=== PATIENT | male | born 1965 | race Caucasian/White ===

== ENCOUNTER 2022-06-06 16:21 | Inpatient (IN) | payer BC ==
[~2022-06-06] VITALS: Ht 180.3 cm; Wt 85.4 kg
[2022-06-06 16:21] VITALS: BP 121/78
[2022-06-06 16:40] LABS: BASO # 0.1 10*3/uL (0.0-0.1); BASO % 0.6 % (0.0-1.0); EOS # 0.2 10*3/uL (0.0-0.4); HEMATOCRIT 50.7 % (42.0-52.0); LYMPH # 2.3 10*3/uL (1.3-4.4); LYMPH % 28.3 % (27.0-41.0); MEAN CELL VOLUME 96.4 fl (80.0-94.0); MEAN CORPUSCULAR HGB 33.3 pg (27.0-31.0); MEAN CORPUSCULAR HGB CONC 34.5 g/dl (33.0-37.0); MEAN PLATELET VOLUME 9.2 fl (9.6-12.3); MONO # 0.8 10*3/uL (0.1-1.0); MONO % 10.1 % (3.0-9.0); NEUT # 4.7 10*3/uL (2.3-7.9); NEUT % 57.9 % (47.0-73.0); PLATELET COUNT AUTOMATED 246 10*3/uL (130-400); RED BLOOD COUNT 5.26 10*6/uL (4.50-5.90); RED CELL DISTRI WIDTH 12.5 % (0-14.5)
[2022-06-06 16:57] LABS: ALKALINE PHOSPHATASE 65 U/L (46-116); BUN 10 mg/dl (9-23); CHLORIDE 109 mmol/L (98-107); POTASSIUM 3.8 mmol/L (3.4-5.1); SGPT/ALT 16 U/L (10-49); TOTAL PROTEIN 6.8 gm/dL (6.0-8.0)
[2022-06-06 16:58] LABS: ACT PARTIAL THROMBO TIME 30.5 SECONDS (20.0-32.1)
[2022-06-06 18:04] VITALS: BP 118/80
[2022-06-06 19:14] VITALS: BP 118/76
[2022-06-06 20:02] VITALS: BP 110/74
[2022-06-06 20:15] VITALS: BP 122/76
[2022-06-07] VITALS: BP 111/56
[2022-06-07 04:00] VITALS: BP 127/68
[2022-06-07 05:00] VITALS: BP 124/68
[2022-06-07 05:50] LABS: ALKALINE PHOSPHATASE 57 U/L (46-116); BUN 8 mg/dl (9-23); CHLORIDE 113 mmol/L (98-107); CHOLESTEROL 177 mg/dL (<200); LDL CHOLESTEROL 127 mg/dL (9-159); POTASSIUM 3.9 mmol/L (3.4-5.1); SGPT/ALT 15 U/L (10-49); THYROID STIM HORMONE (HS) 3.125 uIU/ml (0.550-4.780); TOTAL PROTEIN 5.9 gm/dL (6.0-8.0); TRIGLYCERIDES 86 mg/dl (<150)
[2022-06-07 06:23] LABS: INTERNATIONAL NORM RATIO 1.1 (2.0-3.5)
[2022-06-07 06:41] LABS: BASO # 0.1 10*3/uL (0.0-0.1); BASO % 0.9 % (0.0-1.0); EOS # 0.3 10*3/uL (0.0-0.4); EOS % 4.6 % (1.0-4.0); HEMATOCRIT 49.5 % (42.0-52.0); LYMPH # 2.8 10*3/uL (1.3-4.4); LYMPH % 41.2 % (27.0-41.0); MEAN CELL VOLUME 96.7 fl (80.0-94.0); MEAN CORPUSCULAR HGB 33.2 pg (27.0-31.0); MEAN CORPUSCULAR HGB CONC 34.3 g/dl (33.0-37.0); MEAN PLATELET VOLUME 9.9 fl (9.6-12.3); MONO # 0.7 10*3/uL (0.1-1.0); MONO % 9.9 % (3.0-9.0); NEUT # 2.9 10*3/uL (2.3-7.9); NEUT % 43.1 % (47.0-73.0); PLATELET COUNT AUTOMATED 220 10*3/uL (130-400); RED BLOOD COUNT 5.12 10*6/uL (4.50-5.90); RED CELL DISTRI WIDTH 12.4 % (0-14.5); WHITE BLOOD COUNT 6.7 10*3/uL (4.8-10.8)
[2022-06-07 08:00] VITALS: BP 120/76
[2022-06-07 12:00] VITALS: BP 129/83
== END 2022-06-07 14:02 | disposition short-term general hospital (02) | DRG 282 ==
LOC: ED 16:21 → EDHOLD 17:21 → 5E 19:09 → ICCU 06-07 04:46
PROVIDERS: Emergency Medicine; Student in an Organized Health Care Education/Training Program; ADMIT Internal Medicine; ATTEND Internal Medicine
DX: I21.4 Non-ST elevation (NSTEMI) myocardial infarction (principal); I25.10 Atherosclerotic heart disease of native coronary artery without angina pectoris; R00.1 Bradycardia, unspecified; F17.210 Nicotine dependence, cigarettes, uncomplicated; E87.8 Other disorders of electrolyte and fluid balance, not elsewhere classified; Z95.5 Presence of coronary angioplasty implant and graft; Z90.49 Acquired absence of other specified parts of digestive tract; Z98.52 Vasectomy status; Z82.49 Family history of ischemic heart disease and other diseases of the circulatory system; I25.2 Old myocardial infarction

== ENCOUNTER 2022-10-06 15:21 | Emergency (ER) | payer OTHER, BC ==
[~2022-10-06] VITALS: Ht 180.3 cm; Wt 87.1 kg
== END 2022-10-06 17:51 | disposition home or self-care (01) ==
LOC: ED 15:21
DX: T26.91XA Corrosion of right eye and adnexa, part unspecified, initial encounter (principal); F17.200 Nicotine dependence, unspecified, uncomplicated; Z90.49 Acquired absence of other specified parts of digestive tract; Z95.5 Presence of coronary angioplasty implant and graft; Z77.098 Contact with and (suspected) exposure to other hazardous, chiefly nonmedicinal, chemicals; Y93.89 Activity, other specified; Y92.89 Other specified places as the place of occurrence of the external cause; Y99.8 Other external cause status